=== PATIENT | male | born 1985 | race Caucasian/White ===

== ENCOUNTER 2016-11-01 22:05 | Emergency (ER) | payer OTHER ==
[2016-11-01] MEDS ORDERED: ONDANSETRON DISINTEGRATING 4 MG TAB PO ONE (22:11)
[2016-11-01] MEDS ORDERED: ONDANSETRON 4 MG/2 ML VIAL IVP ONE ×2 (22:11→22:45)
[2016-11-01] MEDS ORDERED: NS 500 ML IV ONE (22:27)
[2016-11-01] MEDS ORDERED: HYDROmorphONE/DILAUDID 1 MG/ML SYR ONE (22:38)
[2016-11-01] MEDS ORDERED: NS 1,000 ML IV ONE (22:45)
[2016-11-01] MEDS ORDERED: HYDROmorphONE/DILAUDID 1 MG/ML SYR IVP ONE (22:45)
--- NOTE | 2016-11-01 22:50 | EDPHY ---
H & P Stated Complaint: general abod pain, severe vomiting all day. Time Seen by Provider: 11/01/16 22:37 HPI/ROS: HPI The patient presents with abdominal pain and vomiting which began upon awakening this morning. His 1st symptom was vomiting and he has had multiple episodes of nonbloody emesis which appears somewhat yellowish. He has tried drinking small amounts of water, Pedialyte, felt eat crackers without any improvement of his symptoms. After his vomiting this morning, he did develop abdominal pain which is in his upper abdomen, crampy in nature, does not radiate , and is moderate in severity. He has had some watery diarrhea. His daughter is sick with intermittent vomiting. About 4 years ago he had an identical episode which resolved on its own. He has had several milder episodes over the years.. REVIEW OF SYSTEMS Constitutional: No fever, no chills. Eyes: No discharge. ENT: No sore throat. Cardiovascular: No chest pain, no palpitations. Respiratory: No cough, no shortness of breath. Gastrointestinal: See HPI Genitourinary: No hematuria. Musculoskeletal: No back pain. Skin: No rashes. Neurological: No headache. PMHx: Healthy Soc Hx: Smokes marijuana nearly daily for the last 20 years, occasional alcohol use, had 3 beers yesterday PHYSICAL General Appearance: Alert, no distress Eyes: Pupils equal and round no pallor or injection ENT, Mouth: Mucous membranes dry Respiratory: There are no retractions, lungs are clear to auscultation Cardiovascular: Regular rate and rhythm Gastrointestinal: Abdomen is soft and non-tender, no masses, bowel sounds normal Neurological: A&O, moves all extremities Skin: Warm and dry, no rashes Musculoskeletal: Neck is supple non tender Extremities: symmetrical, full range of motion Psychiatric: Patient is oriented X 3, there is no agitation Source: Patient Exam Limitations: No limitations - Personal History Current Tetanus/Diphtheria Vaccine: Unsure Current Tetanus Diphtheria and Acellular Pertussis (TDAP): Unsure - Medical/Surgical History Hx Asthma: No Hx Chronic Respiratory Disease: No Hx Diabetes: No Hx Cardiac Disease: No Hx Renal Disease: No Hx Cirrhosis: No Hx Alcoholism: No Hx HIV/AIDS: No Hx Splenectomy or Spleen Trauma: No Other PMH: DENIES, marijuana. - Social History Smoking Status: Current some day smoker Constitutional: Initial Vital Signs Temperature (C) 36.6 C 11/01/16 22:07 Heart Rate 104 H 11/01/16 22:07 Respiratory Rate 18 11/01/16 22:07 Blood Pressure 118/66 11/01/16 22:07 O2 Sat (%) 99 11/01/16 22:07 O2 Delivery Mode Room Air O2 (L/minute) 2 Allergies/Adverse Reactions: amoxicillin [Amoxicillin] Allergy (Severe, Verified 11/01/16 22:10) Hives Home Medications: Medication Instructions Recorded Ondansetron Odt [Zofran Odt 4 mg 4 mg PO Q4 PRN #10 tab 11/02/16 (*)] Medical Decision Making ED Course/Re-evaluation: The patient received IV fluids with some improvement in his symptoms in addition to medications. Labs were checked and were relatively unremarkable except for a leukocytosis. He received a call while he was here that his daughter has had vomiting as well. I feel he likely has a viral gastroenteritis versus hyperemesis syndrome. I have discussed this all with him. He will be discharged with Zofran. He is in agreement with the plan. Repeat abdominal exam is benign. Differential Diagnosis: This is a 30-year-old healthy male who presents with 1 day of nausea, vomiting, abdominal pain. On exam, he is somewhat uncomfortable appearing and is clinically dehydrated. Differential diagnosis includes viral gastroenteritis, toxin mediated enterocolitis, canabanoid hyperemesis syndrome, appendicitis, biliary colic, gastritis. Plan for IV fluids, symptomatic treatment, basic labs. - Data Points Laboratory Results: Laboratory Results 11/01/16 22:32 11/01/16 22:32 11/01/16 11/01/16 22:32 22:32 WBC 17.74 10^3/uL H 10^3/uL (3.80-9.50) RBC 5.79 10^6/uL 10^6/uL (4.40-6.38) Hgb 18.1 g/dL H g/dL (13.7-17.5) Hct 49.5 % % (40.0-51.0) MCV 85.5 fL fL (81.5-99.8) MCH 31.3 pg pg (27.9-34.1) MCHC 36.6 g/dL g/dL (32.4-36.7) RDW 12.0 % % (11.5-15.2) Plt Count 332 10^3/uL 10^3/uL (150-400) MPV 9.8 fL fL (8.7-11.7) Neut % (Auto) 89.2 % H % (39.3-74.2) Lymph % (Auto) 3.7 % L % (15.0-45.0) Converse % (Auto) 6.1 % % (4.5-13.0) Eos % (Auto) 0.2 % L % (0.6-7.6) Baso % (Auto) 0.2 % L % (0.3-1.7) Nucleat RBC Rel Count 0.0 % % (0.0-0.2) Absolute Neuts (auto) 15.82 10^3/uL H 10^3/uL (1.70-6.50) Absolute Lymphs (auto) 0.66 10^3/uL L 10^3/uL (1.00-3.00) Absolute Monos (auto) 1.09 10^3/uL H 10^3/uL (0.30-0.80) Absolute Eos (auto) 0.03 10^3/uL 10^3/uL (0.03-0.40) Absolute Basos (auto) 0.04 10^3/uL 10^3/uL (0.02-0.10) Absolute Nucleated RBC 0.00 10^3/uL 10^3/uL (0-0.01) Immature Gran % 0.6 % % (0.0-1.1) Immature Gran # 0.10 10^3/uL 10^3/uL (0.00-0.10) Sodium 141 mEq/L mEq/L (134-144) Potassium 4.3 mEq/L mEq/L (3.5-5.2) Chloride 103 mEq/L mEq/L (97-110) Carbon Dioxide 21 mEq/l L mEq/l (22-31) Anion Gap 17 mEq/L H mEq/L (8-16) BUN 22 mg/dL mg/dL (7-23) Creatinine 1.0 mg/dL mg/dL (0.7-1.3) Estimated GFR > 60 Glucose 118 mg/dL H mg/dL (70-100) Calcium 10.1 mg/dL mg/dL (8.5-10.4) Total Bilirubin 2.1 mg/dL H mg/dL (0.1-1.4) Conjugated Bilirubin 0.7 mg/dL H mg/dL (0.0-0.5) Unconjugated Bilirubin 1.4 mg/dL H mg/dL (0.0-1.1) AST 36 IU/L IU/L (17-59) ALT 44 IU/L IU/L (21-72) Alkaline Phosphatase 93 IU/L IU/L (38-126) Total Protein 8.1 g/dL g/dL (6.3-8.2) Albumin 4.8 g/dL g/dL (3.5-5.0) Lipase 52.0 IU/L IU/L (23-300) Medications Given: Discontinued Medications Hydromorphone HCl (Dilaudid) 1 mg IVP EDNOW ONE Stop: 11/01/16 22:46 Last Admin: 11/01/16 22:48 Dose: 1 mg Sodium Chloride (Ns) 500 mls @ 0 mls/hr IV EDNOW ONE PRN Reason: Wide Open Stop: 11/01/16 22:28 Last Admin: 11/01/16 22:50 Dose: Not Given Sodium Chloride (Ns) 1,000 mls @ 0 mls/hr IV ONCE ONE PRN Reason: Wide Open Stop: 11/01/16 22:46 Last Admin: 11/01/16 22:48 Dose: 1,000 mls Dextrose/Sodium Chloride (D5w Ns) 1,000 mls @ 0 mls/hr IV CONT ALBAN PRN Reason: Wide Open Stop: 04/30/17 23:29 Last Admin: 11/01/16 23:42 Dose: 1,000 mls Ondansetron HCl (Zofran) 4 mg IVP EDNOW ONE Stop: 11/01/16 22:12 Last Admin: 11/01/16 22:46 Dose: Not Given Ondansetron HCl (Zofran Odt) 4 mg PO EDNOW ONE Stop: 11/01/16 22:12 Last Admin: 11/01/16 22:14 Dose: 4 mg Ondansetron HCl (Zofran) 4 mg IVP EDNOW ONE Stop: 11/01/16 22:46 Last Admin: 11/01/16 22:47 Dose: 4 mg Ondansetron HCl (Zofran Odt 4 Mg Prepack#2) 1 btl AMBROSIO BLOOM ONE Stop: 11/02/16 00:42 Last Admin: 11/02/16 00:45 Dose: 1 btl Departure - Departure Disposition: Home, Routine, Self-Care Clinical Impression: Dehydration Nausea & vomiting Qualifiers: Vomiting type: unspecified Vomiting Intractability: non-intractable Qualified Code(s): R11.2 - Nausea with vomiting, unspecified Abdominal pain Qualifiers: Abdominal location: generalized Qualified Code(s): R10.84 - Generalized abdominal pain Condition: Good Instructions: Ondansetron (By mouth), Acute Nausea and Vomiting (ED) Additional Instructions: You should please return to the emergency room if your worse in any way. Otherwise you should follow up with your regular doctor. Please make sure to drink bland foods and clear liquids until your feeling better. You should consider stopping using marijuana to see if this helps her symptoms. Referrals: Mahi Urrutia MD [Primary Care Provider] - As per Instructions Prescriptions: Ondansetron Odt [Zofran Odt 4 mg (*)] 4 mg PO Q4 PRN #10 tab PRN Reason: Nausea/Vomiting, Can'T Take Po
[2016-11-01 22:55] LABS: % IMMATURE GRANULYOCYTES 0.6 % (0.0-1.1); ADD DIFF? NO; ADD MORPH? NO; ADD SCAN? NO; ATYPICAL LYMPHOCYTE FLAG 0 (0-99); FRAGMENT RBC FLAG 0 (0-99); HEMATOCRIT 49.5 % (40.0-51.0); HEMOGLOBIN 18.1 g/dL (13.7-17.5); LEFT SHIFT FLG 0 (0-99); LIPEMIA HEMOLYSIS FLAG 90 (0-99); MEAN CELL HEMOGLOBIN 31.3 pg (27.9-34.1); MEAN CELL HEMOGLOBIN CONCENTR. 36.6 g/dL (32.4-36.7); MEAN CELL VOLUME 85.5 fL (81.5-99.8); MEAN PLATELET VOLUME 9.8 fL (8.7-11.7); PLATELET CLUMPS FLAG 0 (0-99); PLATELET COUNT 332 10^3/uL (150-400); RED BLOOD CELL COUNT 5.79 10^6/uL (4.40-6.38)
[2016-11-01 23:02] LABS: ALANINE AMINOTRANSFERASE 44 IU/L (21-72); ALBUMIN 4.8 g/dL (3.5-5.0); ALKALINE PHOSPHATASE 93 IU/L (38-126); ANION GAP 17 mEq/L (8-16); ASPARTATE AMINOTRANSFERASE 36 IU/L (17-59); BILIRUBIN,TOTAL 2.1 mg/dL (0.1-1.4); BILIRUBIN-CONJUGATED 0.7 mg/dL (0.0-0.5); BILIRUBIN-UNCONJUGATED 1.4 mg/dL (0.0-1.1); CALCIUM 10.1 mg/dL (8.5-10.4); CARBON DIOXIDE 21 mEq/l (22-31); CHLORIDE 103 mEq/L (97-110); GLOMERULAR FILTRATION RATE > 60; GLUCOSE 118 mg/dL (70-100); POTASSIUM 4.3 mEq/L (3.5-5.2); SODIUM 141 mEq/L (134-144); TOTAL PROTEIN 8.1 g/dL (6.3-8.2)
[2016-11-01] MEDS ORDERED: D5W NS 1,000 ML IV SCH (23:30)
[2016-11-02 00:27] VITALS: RESP 16
[2016-11-02] MEDS ORDERED: ONDANSETRON 4MG PREPACK#2 BTL TAKEHOME ONE (00:41)
[2016-11-02 00:58] VITALS: BP 110/71; PULSE 76; TEMP 98.1; O2SAT 96
== END 2016-11-02 00:58 | disposition home or self-care (01) ==
DX: E86.0 Dehydration (principal); R10.84 Generalized abdominal pain; F17.200 Nicotine dependence, unspecified, uncomplicated
CPT/HCPCS: 96365; J1170; J2405

== ENCOUNTER → 2018-03-02 | Outpatient (CLI) | payer OTHER | LOC: FIMAGING 17:22 | PROVIDERS: ATTEND Physician Assistant Medical | DX: J98.09 Other diseases of bronchus, not elsewhere classified (principal); Z72.0 Tobacco use ==